=== PATIENT | female | born 1990 | race Hispanic/Latino ===

== ENCOUNTER 2023-10-14 02:07 | Emergency (ER) | payer MEDICARE ==
[~2023-10-14] VITALS: Ht 162.6 cm; Wt 82.2 kg
[2023-10-14] MEDS ORDERED: ABIL1TAB11 PO (02:25)
[2023-10-14] MEDS ORDERED: CLON0.2T PO (02:25)
[2023-10-14] MEDS: MORPHINE 4 MG/ML 1ML VIAL IV PRN (03:25)
[2023-10-14 03:26] LABS: BASO % 0.3 % (0.0-1.0); EOS % 0.3 % (0.0-3.0); HEMATOCRIT 36.6 % (36.0-47.0); HEMOGLOBIN 12.7 g/dl (12.0-15.5); LYMPH # 2.8 10^3/uL (1.5-5.0); LYMPH % 22.7 % (24.0-44.0); MEAN CORPUSCULAR HEMOGLOBIN 31.1 pg (27.0-33.0); MEAN CORPUSCULAR HGB CONC 34.7 g/dl (32.0-36.5); MEAN CORPUSCULAR VOLUME 89.7 fl (80.0-96.0); MONO # 0.6 10^3/uL (0.0-0.8); NEUTROPHILS # 8.9 10^3/uL (1.5-8.5); NEUTROPHILS % 71.4 % (36.0-66.0); PLATELET COUNT, AUTOMATED 259 10^3/uL (150-450); RED BLOOD COUNT 4.08 10^6/uL (4.00-5.40); WHITE BLOOD COUNT 12.5 10^3/uL (4.0-10.0)
[2023-10-14] MEDS: ONDANSETRON 4MG 2ML VIAL IV ONE (03:26)
[2023-10-14 03:47] LABS: LIPASE 30 U/L (12-53)
[2023-10-14 03:49] LABS: ALBUMIN 3.7 G/DL (3.2-5.2); ALKALINE PHOSPHATASE 89 U/L (46-116); ALT/SGPT 13 U/L (7.0-40); AST/SGOT 14 U/L (<34); BILIRUBIN,DIRECT < 0.1 MG/DL (<0.4); BILIRUBIN,TOTAL 0.2 MG/DL (0.3-1.2); BLOOD UREA NITROGEN 16 MG/DL (9-23); CALCIUM LEVEL 8.6 MG/DL (8.5-10.1); CARBON DIOXIDE LEVEL 23 MMOL/L (20-31); CHLORIDE LEVEL 106 MMOL/L (98-107); CREATININE FOR GFR 0.86 MG/DL (0.55-1.30); GLOMERULAR FILTRATION RATE > 60.0 (>60); GLUCOSE, FASTING 96 MG/DL (60-100); POTASSIUM SERUM 3.9 MMOL/L (3.5-5.1); SODIUM LEVEL 137 MMOL/L (136-145); TOTAL PROTEIN 7.2 G/DL (5.7-8.2)
[2023-10-14] MEDS ORDERED: PERC5TAB12 PO (08:09)
[2023-10-14] MEDS ORDERED: IBUP-1022 PO (08:09)
[2023-10-14 08:16] VITALS: BP 109/64; TEMP 96.8; O2SAT 100
[2023-10-14] MEDS: PERCOCET 5MG/325MG TAB PO ONE (08:21)
== END 2023-10-14 08:27 | disposition home or self-care (01) ==
LOC: M ED 02:07
DX: N23 Unspecified renal colic (principal); N13.30 Unspecified hydronephrosis; Z87.442 Personal history of urinary calculi; Z87.42 Personal history of other diseases of the female genital tract; Z79.1 Long term (current) use of non-steroidal anti-inflammatories (NSAID); Z79.899 Other long term (current) drug therapy
CPT/HCPCS: 74176; 80048; 80076; 81001; 83605; 83690; 84702; 85025; 93041; 96374; 96375; 96376; 99285; J2405

== ENCOUNTER 2023-10-19 15:42 | Inpatient (IN) | payer MEDICARE ==
[~2023-10-19] VITALS: Ht 162.6 cm; Wt 92.0 kg
[~2023-10-19 15:42] MED LIST: ABIL1TAB11 PO; CLON0.2T PO; IBUP-1022 PO; PERC5TAB12 PO
[2023-10-19 16:52] LABS: HEMATOCRIT 37.7 % (36.0-47.0); HEMOGLOBIN 12.6 g/dl (12.0-15.5); MEAN CORPUSCULAR HEMOGLOBIN 30.7 pg (27.0-33.0); MEAN CORPUSCULAR HGB CONC 33.4 g/dl (32.0-36.5); PLATELET COUNT, AUTOMATED 290 10^3/uL (150-450); WHITE BLOOD COUNT 9.1 10^3/uL (4.0-10.0)
[2023-10-19 17:16] LABS: AMPHETAMINES LEVEL URINE NEGATIVE (NEGATIVE); BARBITURATES URINE NEGATIVE (NEGATIVE); BENZODIAZEPINES URINE NEGATIVE (NEGATIVE); COCAINE METABOLITE URINE NEGATIVE (NEGATIVE); METHADONE URINE NEGATIVE (NEGATIVE)
[2023-10-19 17:17] LABS: CANNABINOIDS URINE NEGATIVE (NEGATIVE); OPIATES URINE NEGATIVE (NEGATIVE); PHENCYCLIDINE URINE NEGATIVE (NEGATIVE)
[2023-10-19 17:19] LABS: ETHYL ALCOHOL (ETHANOL) < 0.003 % (0.000-0.010)
[2023-10-19 17:20] LABS: ALKALINE PHOSPHATASE 90 U/L (46-116); ALT/SGPT 12 U/L (7.0-40); AST/SGOT 14 U/L (<34); BILIRUBIN,DIRECT 0.1 MG/DL (<0.4); BILIRUBIN,TOTAL 0.3 MG/DL (0.3-1.2); BLOOD UREA NITROGEN 14 MG/DL (9-23); CALCIUM LEVEL 9.5 MG/DL (8.5-10.1); CARBON DIOXIDE LEVEL 27 MMOL/L (20-31); CHLORIDE LEVEL 105 MMOL/L (98-107); CREATININE FOR GFR 0.83 MG/DL (0.55-1.30); GLOMERULAR FILTRATION RATE > 60.0 (>60); GLUCOSE, FASTING 91 MG/DL (60-100); POTASSIUM SERUM 4.3 MMOL/L (3.5-5.1); SALICYLATE LEVEL < 3.0 MG/DL (<30); SODIUM LEVEL 137 MMOL/L (136-145); TOTAL PROTEIN 7.7 G/DL (5.7-8.2)
[2023-10-19 17:22] LABS: THYROID STIMULATING HORMONE 1.963 uIU/ML (0.55-4.78)
[2023-10-19 17:24] LABS: HCG, SERUM QUALITATIVE NEGATIVE (NEGATIVE)
[2023-10-19] MEDS ORDERED: MOM 30ML SUSPENSION UDC PO PRN (17:40)
[2023-10-19 21:46] VITALS: BP 120/76; TEMP 97.6; O2SAT 97
[2023-10-19] MEDS: traZODone 50 MG TAB PO PRN (21:57)
[2023-10-20 06:28] VITALS: BP 96/55; TEMP 97.5; O2SAT 99
[2023-10-20] MEDS ORDERED: IBUP-1022 PO (11:19)
[2023-10-20] MEDS ORDERED: HOME MED LIST COMPLETE! XX SCH (11:25)
[2023-10-20] MEDS: FLUoxetine 20MG CAP PO SCH (11:46)
[2023-10-20] MEDS: PALIPERIDONE 3MG ER TAB (INVEGA) PO SCH ×2 (11:47→20:27)
[2023-10-20 15:00] VITALS: BP 121/65; TEMP 97; O2SAT 93
[2023-10-20] MEDS: diphenhydrAMINE 25MG CAP PO PRN (15:02)
[2023-10-20] MEDS: RAMELTEON 8 MG TAB (ROZEREM) PO SCH (20:27)
[2023-10-21 04:20] VITALS: BP 133/59; TEMP 96.7; O2SAT 97
[2023-10-21] MEDS: ACETAMINOPHEN TAB 650MG DOSE (2X325MG) PO PRN (04:32)
[2023-10-21] MEDS: MAALOX 30 ML SUSP *UDC PO PRN (04:32)
[2023-10-21 05:38] VITALS: BP 97/55; TEMP 97.6; O2SAT 95
[2023-10-21 06:41] VITALS: BP 108/58; TEMP 98.5; O2SAT 97
[2023-10-21 07:47] LABS: CHOLESTEROL RISK RATIO 4.46 (<5); HDL CHOLESTEROL 30.9 MG/DL (>40); LDL CHOLESTEROL 79.9 MG/DL (<100); NON-HDL-C 107.1 MG/DL
[2023-10-21] MEDS: IBUPROFEN 400MG TAB PO PRN (09:23)
[2023-10-21 16:13] VITALS: BP 144/62; TEMP 97.9; O2SAT 97
[2023-10-21] MEDS: MIRTAZAPINE 15 MG TAB PO SCH (21:13)
[2023-10-22 06:35] VITALS: BP 106/70; TEMP 97.6; O2SAT 96
[2023-10-22] MEDS: hydrOXYzine 50 MG TAB PO PRN (13:04)
[2023-10-22 16:21] VITALS: BP 111/71; TEMP 96.8; O2SAT 100
[2023-10-23 06:33] VITALS: BP 126/71; TEMP 98.2; O2SAT 96
[2023-10-23] MEDS: PALIPERIDONE PAL 234MG/1.5ML INJ (INVEGA)(FREE PSY INPT ONLY) IM SCH (11:17)
[2023-10-23 17:34] VITALS: BP 122/79; TEMP 97; O2SAT 100
[2023-10-24 06:22] VITALS: BP 131/75; TEMP 97.2; O2SAT 95
[2023-10-24] MEDS ORDERED: PILL CUTTER 1 EACH XX PRN (07:15)
[2023-10-24] MEDS: OLANZapine ORAL DISINTEGRATING TAB 5MG PO PRN (13:57)
[2023-10-24 17:27] VITALS: BP 134/72; TEMP 97.1; O2SAT 100
[2023-10-24] MEDS: MIRTAZAPINE 15 MG TAB PO SCH (20:11)
[2023-10-25 06:29] VITALS: BP 112/62; TEMP 97.6; O2SAT 96
[2023-10-25 17:05] VITALS: BP 139/81; TEMP 97.2
[2023-10-26 06:22] VITALS: BP 141/78; TEMP 97.7; O2SAT 95
[2023-10-26] MEDS ORDERED: INVE234I IM (09:56)
[2023-10-26] MEDS ORDERED: MIRT-10 PO (09:56)
[2023-10-26] MEDS ORDERED: HYDR50TA70 PO (09:56)
[2023-10-26 15:39] VITALS: BP 133/81; TEMP 97.4; O2SAT 100
[2023-10-27 06:28] VITALS: BP 101/56; TEMP 97.2; O2SAT 95
[2023-10-27] MEDS: PALIPERIDONE PAL 156MG/1ML INJ(INVEGA)(FREE PSY INPT ONLY) IM ONE (09:29)
== END 2023-10-27 11:20 | disposition home or self-care (01) | DRG 885 ==
LOC: M ED 15:42 → M ED INP 17:40 → M PSY 21:07
PROVIDERS: ADMIT Student in an Organized Health Care Education/Training Program; ATTEND Student in an Organized Health Care Education/Training Program
DX: F29 Unspecified psychosis not due to a substance or known physiological condition (principal); R45.851 Suicidal ideations; F25.9 Schizoaffective disorder, unspecified; F41.9 Anxiety disorder, unspecified; F43.10 Post-traumatic stress disorder, unspecified; K21.9 Gastro-esophageal reflux disease without esophagitis; Z62.819 Personal history of unspecified abuse in childhood; Z81.8 Family history of other mental and behavioral disorders; Z79.899 Other long term (current) drug therapy; Z91.51 Personal history of suicidal behavior; Z91.52 Personal history of nonsuicidal self-harm

== ENCOUNTER 2025-03-17 04:23 | Emergency (ER) | payer MEDICARE, MEDICAID ==
[~2025-03-17] VITALS: Ht 162.6 cm; Wt 97.9 kg
[~2025-03-17 04:23] MED LIST changes: +HYDR50TA70 PO; +INVE234I IM; +MIRT-10 PO
[2025-03-17 05:55] LABS: BASO # 0.0 10^3/uL (0.0-0.2); BASO % 0.4 % (0.0-1.0); EOS # 0.1 10^3/uL (0.0-0.5); EOS % 0.7 % (0.0-3.0); LYMPH # 2.6 10^3/uL (1.5-5.0); LYMPH % 31.5 % (24.0-44.0); MONO # 0.5 10^3/uL (0.0-0.8); MONO % 6.4 % (2.0-8.0); NEUTROPHILS # 4.9 10^3/uL (1.5-8.5); NEUTROPHILS % 60.6 % (36.0-66.0); PLATELET COUNT, AUTOMATED 259 10^3/uL (150-450)
[2025-03-17 06:25] LABS: ALT/SGPT 14 U/L (7.0-40); AST/SGOT 19 U/L (<34); CALCIUM LEVEL 9.0 MG/DL (8.5-10.1); CARBON DIOXIDE LEVEL 27 MMOL/L (20-31); CHLORIDE LEVEL 105 MMOL/L (98-107); CK-MB VALUE MASS < 1.0 NG/ML (<3.6); CPK CREATINE PHOSPHOKINASE 91 U/L (34-145); CREATININE FOR GFR 0.97 MG/DL (0.55-1.30); GLOMERULAR FILTRATION RATE 78.2 (>60); POTASSIUM SERUM 4.1 MMOL/L (3.5-5.1); SODIUM LEVEL 140 MMOL/L (136-145)
[2025-03-17 07:00] LABS: KETONE, URINE AUTO RFX NEGATIVE (NEGATIVE); LEUKOCYTE ESTERASE UR AUTO RFX NEGATIVE (NEGATIVE); MUCUS, URINE RFX SMALL (NEGATIVE); NITRITE, URINE AUTO RFX NEGATIVE (NEGATIVE); RBC, URINE AUTO RFX 1 /HPF (0-3); SQUAM EPITHELIAL CELL UR AURFX 1 /HPF (0-6); TRIPLE PHOSPHATE CRYSTALS RFX SMALL; WBC, URINE AUTO RFX 0 /HPF (0-3)
[2025-03-17] MEDS: ONDANSETRON 4MG 2ML VIAL IV ONE (07:00)
[2025-03-17 07:34] LABS: HCG, SERUM QUALITATIVE NEGATIVE (NEGATIVE)
[2025-03-17] MEDS ORDERED: ISOVUE-370 76% 100 ML VIAL As Ordered ONE (08:08)
[2025-03-17] MEDS: KETOROLAC 30 MG/ML 1 ML VIAL IV ONE (08:19)
[2025-03-17] MEDS ORDERED: COLA100C5 PO (09:25)
[2025-03-17] MEDS ORDERED: MIRA3350 PO (09:25)
[2025-03-17] MEDS ORDERED: ONDA-282 PO (09:31)
[2025-03-17 09:34] VITALS: BP 120/69; TEMP 98.4; O2SAT 100
== END 2025-03-17 09:40 | disposition home or self-care (01) ==
LOC: M ED 04:23 → EDBD 04:23 → M ED 09:40
DX: K59.00 Constipation, unspecified (principal); R10.9 Unspecified abdominal pain; Z79.899 Other long term (current) drug therapy
CPT/HCPCS: 74177; 80048; 80076; 81001; 82150; 82550; 82553; 83690; 84484; 84703; 85025; 93005; 96374; 96375; 99284; J1885; J2405; Q9967